=== PATIENT | male | born 1950 | race Caucasian/White ===

== ENCOUNTER 2023-10-05 07:17 | Inpatient (IN) ==
--- NOTE | 2023-09-15 08:17 | History & Physical Report ---
Date of Service September 15, 2023 date of surgery: 10/05/23 Procedure: Right Knee Poly Exchange Surgeon: Romie Yoder DO Assessment & Plan (1) Painful total knee replacement, right: Plan: Risk and benefits of procedure were discussed, with the proceed with surgical invention. Plan will be right knee polyethylene exchange, plan overnight stay at the hospital with discharge home with home health physical therapy. Will place on aspirin 81 mg twice a day for 1 month postop DVT prophylaxis. Follow- up in the office 2 weeks after surgery or sooner if he is having any issues. He otherwise has no other questions or concerns The risks and benefits have been discussed including, but not limited to, risk of infection, nerve injury, stiffness, loss of motion, failure to improve, etc. Reasonable outcomes and options of treatment were discussed. An explanation of appropriate alternatives to the procedure that may be advantageous were discussed and their risks and benefits, as well as the risks and benefits of not proceeding with treatment. I offered to answer any additional inquiries concerning the treatment involved. All the patient's questions were answered. The patient is agreeable, understanding of the treatment plan and alternatives, and wishes to proceed with the treatment plan. History of Present Illness Chief Complaint: Right knee pain Primary Care Provider: Romie Yoder DO Arturo is a 73-year-old male who presented for preop evaluation prior to upcoming right total knee polyethylene exchange. He has a history of right total knee [place] [address] Yoder and did reasonably well up until recently. He has had pain and instability, giving out of his right knee. He had x-rays taken by Dr. Yoder which did not show any acute findings, no signs of loosening. Did have some valgus varus laxity. At this point time would recommend polyethylene exchange. Allergies Allergy/AdvReac Type Severity Reaction Status Date / Time Penicillins Allergy Severe LIPS Verified 08/21/12 09:35 SWELLING bee venom protein (honey bee) Allergy Unknown UNKNOWN Verified 08/21/12 09:35 Home Medications Medication Instructions Recorded Confirmed Type ESOMEPRAZOLE MAGNESIUM (NEXIUM) 40 mg PO DAILY #0 caps 08/21/12 History TAMSULOSIN HCL (FLOMAX) 0.4 mg PO DAILY #0 caps 08/21/12 History LISINOPRIL (ZESTRIL) 20 mg PO DAILY #0 tabs 09/13/12 History OXYCODONE HCL (OXYCODONE HCL ER) 10 mg PO Q12 ##60 09/15/12 Rx OXYCODONE/ACETAMINOPHEN 5MG/325MG 1 - 2 tab PO Q4H PRN ##90 09/15/12 Rx (PERCOCET 5MG/325MG) Past Med/Surg History Medical History GERD (gastroesophageal reflux disease) High cholesterol Hypertension Surgical History History of total left knee replacement History of total right knee replacement Review of Systems Review of Systems: All systems reviewed & are unremarkable except as noted in HPI & below Constitutional: no fever, no chills and no sweats Respiratory: no cough and no dyspnea Cardiovascular: no chest pain, no dyspnea and no orthopnea Gastrointestinal: no abdominal pain, no nausea and no vomiting Musculoskeletal: as per Subjective / HPI Physical Exam Constitutional: WD/WN, vitals as above no acute distress Respiratory: normal respiratory effort, lungs clear to auscultation no respiratory distress, no labored breathing and does not use accessory muscles Cardiovascular: RRR, no murmur, no edema Gastrointestinal (Abdomen): normal bowel sounds, soft, nontender, no hepatosplenomegaly Musculoskeletal: Right Knee Exam overall neutral alignment, there is no atrophy warmth or ecchymosis noted, mild effusion, maximum tenderness medial joint. negative patellar apprehension , no crepitation with motion, valgus stress Negative, Varus stress Negative, no Extensor lag, Pain with Active range of motion, also passive painful ROM, Range of motion 0/3/110. No pain with active/passive ROM of ankle. Lower Extremity Strength normal. Lower Extremity Neuro-vascular is normal Results & Data Results & Data Diagnostic Findings 3 views right knee: the patient is status post a right total knee arthroplasty. The hardware is intact. No fracture or dislocation. IMPRESSION: Right total knee arthroplasty. No evidence for hardware complication.
--- NOTE | 2023-09-27 10:53 | Anesthesiology Consultation ---
Date of Service September 27, 2023 Assessment & Plan (1) Encounter for pre-operative examination: Chart Review Chart Review: Acceptable Risk for Surgery (pending ECHO, stress test and carotid reports ) and Patient NOT seen in Pre Admission Testing - Please obtain 02/2023 carotids, 2018 ECHO and 2017 stress test (noted in cardio note) -Infectious Disease screening: Per PAT nursing assessment on 09/23/23. No known infectious disease contacts in past 10 days or current infectious disease symptoms. No recent travel outside the country. Seen by cardio 03/15/23= PADcontinue aspirin and statin. Hypertensionacceptable today. Update echo with next office visit. Dyslipidemiacontinue statin. Carotid stenosis <50% bilateral ICAwe will obtain 2023. Mild TR. Aortic sclerosis noted on echo 4 years agowe will repeat echo. Follow-up in 1 year. History Surgery Operation Date: 10/05/23 10:00 Proposed Procedures p Right Knee Poly Exchange - Romie Yoder DO Height/Weight Height: 5 ft 10 in Weight: 92.533 kg Allergies Allergy/AdvReac Type Severity Reaction Status Date / Time Penicillins Allergy Severe LIPS Verified 09/23/23 13:03 SWELLING bee venom protein (honey bee) Allergy Unknown UNKNOWN Verified 09/23/23 13:03 Medications Home Medications Medication Instructions Recorded Confirmed Last Taken amlodipine 5 mg tablet 5 mg PO PM 09/23/23 09/23/23 Unknown aspirin 81 mg tablet,delayed 81 mg PO QAM 09/23/23 09/23/23 Unknown release atorvastatin 20 mg tablet 20 mg PO PM 09/23/23 09/23/23 Unknown bisoprolol fumarate 5 mg tablet 5 mg PO PM 09/23/23 09/23/23 Unknown lisinopril 20 mg tablet 20 mg PO QAM 09/23/23 09/23/23 Unknown magnesium 250 mg tablet 250 mg PO QAM 09/23/23 09/23/23 Unknown pantoprazole 40 mg tablet,delayed 40 mg PO PM 09/23/23 09/23/23 Unknown release Past Medical History Medical History (Updated 09/27/23 @ 11:01 by Leesa Valente PA-C) PAD (peripheral artery disease) mild to moderate right LE arterial disease, normal left LE arterial disease without claudication- on ASA and statin per cardio records Carotid stenosis <50% stenosis bilaterally per 02/2023 carotids per cardio records BPH (benign prostatic hyperplasia) Pulmonary embolism 40+ yrs ago, unknown cause History of COVID-2019 GERD (gastroesophageal reflux disease) High cholesterol Hypertension Past Surgical History Surgical History History of esophagogastroduodenoscopy (EGD) H/O decompression of ulnar nerve bilat History of arthroscopy right shoulder History of carpal tunnel release bilat S/P TURP History of colonoscopy History of appendectomy History of tooth extraction History of total left knee replacement History of total right knee replacement Social History Smoking Status: Former smoker Do You Dip or Chew Tobacco: No Smoking End Date: 1999 Hx Alcohol Use: No Hx Substance Use: No substance use type: does not use Testing Laboratory Results 09/12/23= WBC: 6.9 H/H: 14.6/42.9 PLATELETS: 263 SODIUM: 140 POTASSIUM: 4.0 CHLORIDE: 106 CO2: 27 BUN: 13 CREATININE: 0.83 GLUCOSE: 97
[~2023-10-05 07:17] MED LIST: ACETAMINOPHEN 500 MG TAB PO SCH; ALLERGY Noted to ORDERED Medication SCH; BUPIVACAINE 0.5 % 5 MG/1 ML PF 10ML VIAL ONE; CLINDAMYCIN/D5W 900 MG/50 ML BAG IV SCH; CeleBREX 200 MG CAP PO SCH; EPINEPHrine INJ 1 MG/ML AMP ONE; FAMOTIDINE 20 MG TAB PO SCH; GABAPENTIN 300 MG CAP PO SCH; LR 15ML/HR IV SCH; LR 60ML/HR IV SCH; METOCLOPRAMIDE HCL 10 MG TABLET PO SCH; ROPIVACAINE 0.5% 5 MG/ML 30 ML VIAL ONE; ROPIVACAINE 0.5% HCL/PF 150 MG, BUPIVACAINE 0.75% MPF 20 ML, EPINEPHrine 30MG/30ML (OR ... INSTIL SCH; TRANEXAMIC ACID 1,000 MG **IV Intra-op IV SCH; TRANEXAMIC ACID 1,000 MG **IV Pre-op IV SCH; dexAMETHasone 4 MG TAB PO SCH
--- NOTE | 2023-10-05 08:41 | History & Physical Bridge Note ---
Date of Service October 05, 2023 History & Physical Bridge Note I have examined the patient, reviewed the History & Physical and in the interval since the performance of the History & Physical I have noted the following changes of clinical significance: no changes noted
[2023-10-05] MEDS ORDERED: PROPOFOL IV EMULSION 10 MG/ML 20 ML VIAL IV ONE (09:15)
[2023-10-05] MEDS ORDERED: MIDAZOLAM HCL 1 MG/ML 2ML VIAL ONE ×2 (09:15→09:16)
[2023-10-05] MEDS ORDERED: ONDANSETRON INJ 2 MG/ML 2 ML VIAL ONE (09:15)
[2023-10-05] MEDS ORDERED: LIDOCAINE 2% 2 ML VIAL/AMP(20MG/ML) INFIL ONE (09:15)
[2023-10-05] MEDS ORDERED: ORTHO JOINT ANESTHETIC ONE (09:25)
[2023-10-05] MEDS ORDERED: FLUMAZENIL 0.1 MG/1 ML 10 ML VIAL IV PRN (10:55)
[2023-10-05] MEDS ORDERED: ONDANSETRON INJ 2 MG/ML 2 ML VIAL IV PRN ×2 (10:55→14:08)
[2023-10-05] MEDS ORDERED: PROMETHAZINE HCL 12.5 MG in SODIUM CHLORIDE 0.9% 50 ML IV PRN (10:55)
[2023-10-05] MEDS ORDERED: ATROPINE SULFATE 0.1 MG/ML 10ML SYR IV PRN (10:55)
[2023-10-05] MEDS ORDERED: ePHEDrine sulfate 50 MG/ML AMP IV PRN (10:55)
[2023-10-05] MEDS ORDERED: NALOXONE HCL 0.4 MG/1 ML VIAL/CARP IV PRN ×2 (10:55→14:08)
[2023-10-05] MEDS ORDERED: HYDROmorphone INJ 1 MG/ML SYRINGE IV PRN (10:55)
--- NOTE | 2023-10-05 11:08 | Operative Report ---
Post Operative Report Pre & Post Diagnosis Operation Date: 10/05/23 09:00 <No data on this case meets the specified criteria> I identified the patient and participated in the time-out.: Yes Procedure Patient presents with painful instability about the right knee after failure of the polyethylene post insert on a journey 1 total knee arthroplasty Operation Date: 10/05/23 09:00 <No data on this case meets the specified criteria> Surgeon Romie Yoder, Risk Control Representative Giovanny DOE Estimated Blood Loss 5 Findings Consistent with Post-Op Diagnosis Patient presents with pain instability after suffering a broken post of his poly implant of his right total knee arthroplasty Specimens Broken poly implant Drains Medium bore Hemovac Anesthesia Type MAC Spinal Regional Complications none Disposition Accompanied Patient To Recovery: No Disposition: Recovery Room Indications Patient presents after suffering sudden instability in after having a broken failed post of his polyethylene implant of his right total knee arthroplasty Description of Procedure After initiation of general esthesia right lower extremity subcu prepped draped usual fashion patient had an old medial parapatellar incision which was used to open the medial parapatellar incision to open the the knee joint the broken piece of purulence was immediately visualized was removed persistent partial synovectomy is hypertrophic scar was removed broken polyethylene bearing was removed wound was irrigated with copious muscle sterile saline solution the patient had meticulous hemostasis obtained and maintained at that time subsequently a polyethylene trial to size 13 gave excellent stability full extension excellent stability in flexion mid flexion and extension subsequently changed to size 10 to a size 13 the wound was irrigated once again the experience was also put into the knee the poly was subsequent change to a new poly medial parapatellar incision closed #1 Vicryl subcu was closed with 2-0 Vicryl skin was closed skin clips sterile compressive dressings placed patient was taken recovery room in stable condition please note Giovanny DOE was active just in case dissipated and exposure retraction placement of poly wound closure deep fascia. Skin was necessary for the case I attest to the content of the Intraoperative Record and any orders documented therein. Any exceptions are noted below.
[2023-10-05] MEDS: fentaNYL citrate PF 100 MCG/2 ML VIAL IV PRN ×4 (12:22→13:20)
--- NOTE | 2023-10-05 12:43 | Anesthesiology Progress Note ---
Date of Service October 05, 2023 Anesthesia Post Procedure Vital Signs Vital Signs: Temp Pulse Resp BP Pulse Ox O2 Del Method O2 Flow Rate 10/05/23 12:30 55 L 12 118/74 97 Nasal Cannula 2 10/05/23 12:20 59 L 16 103/67 97 Nasal Cannula 2 10/05/23 12:10 59 L 17 116/67 97 Nasal Cannula 2 10/05/23 12:00 61 14 114/62 90 Nasal Cannula 2 10/05/23 11:50 61 14 123/60 97 Oxymask 4 10/05/23 11:43 36.3 C L 61 16 114/57 L 97 Oxymask 6 10/05/23 08:10 36.5 C 61 14 167/65 H 97 Room Air Pain Intensity Right Knee: Pain Intensity: 5 Transfer of Care Handoff Completed per policy Notes Mental Status: alert / awake / arousable Patient Amnestic to Procedure: Yes Nausea / Vomiting: adequately controlled Pain: adequately controlled Airway Patency, RR, SpO2: stable & adequate BP & HR: stable & adequate Hydration State: stable & adequate Neuraxial Anesthesia: was administered and sensory block is resolving Anesthetic Complications: no major complications apparent
--- NOTE | 2023-10-05 13:17 | XRay Report ---
XR knee RT 1 or 2V routine HISTORY: 73 years-old Male Surgical Post Op right knee arthroplasty COMPARISON: None TECHNIQUE: 2 views of the right knee FINDINGS: Total joint arthroplasty with patellar resurfacing. Anterior midline skin adina with expected posto perative soft tissue swelling and deep tissue air. Surgical drainage catheter. Indeterminate 1.9 cm l inear metallic density structure superior to the patella. IMPRESSION: 1. Satisfactory alignment of the total joint arthroplasty. 2. Indeterminate 1.9 cm linear metallic density structure superior to the patella superficial and lat eral to the skin adina. Correlate clinically to exclude a foreign body. ACT 112: Negative or not required by law. The above report was generated using voice recognition software. It may contain grammatical, syntax o r spelling errors. Electronically signed by: Edis Arechiga M.D. 10/05/2023 1:16 PM
[2023-10-05] MEDS ORDERED: diphenhydrAMINE 50 MG/ML VIAL IV PRN (14:08)
[2023-10-05] MEDS ORDERED: SODIUM CHLORIDE 0.9% 1,000 ML IV SCH (14:08)
[2023-10-05] MEDS ORDERED: bisacodyL 10 MG SUPP PR PRN (14:08)
[2023-10-05] MEDS ORDERED: MAGNESIUM HYDROXIDE SUSP 30 ML UDC PO PRN (14:08)
[2023-10-05] MEDS: ACETAMINOPHEN 500 MG TAB PO SCH ×2 (14:48→21:19)
[2023-10-05] MEDS: oxyCODONE HCL IR 5 MG TAB (IMMEDIATE RELEASE) PO PRN ×2 (15:46→20:27)
[2023-10-05] MEDS: CLINDAMYCIN/D5W 600 MG/50 ML BAG IV SCH (17:22)
[2023-10-05] MEDS: HYDROmorphone INJ 0.5 MG/0.5 ML SYR IV PRN ×2 (17:27→23:29)
[2023-10-05] MEDS ORDERED: ATORVASTATIN 20 MG TAB PO SCH (21:00)
[2023-10-05] MEDS ORDERED: SENNA 8.6 MG TAB PO SCH (21:00)
[2023-10-05] MEDS ORDERED: BISOPROLOL FUMARATE 5 MG TAB PO SCH (21:00)
[2023-10-05] MEDS ORDERED: amLODIPine BESYLATE 5 MG TAB PO SCH (21:00)
[2023-10-05] MEDS ORDERED: PANTOprazole 40 MG TAB PO SCH (21:00)
[2023-10-05] MEDS: ASPIRIN 81 MG ECTAB PO SCH (21:18)
[2023-10-05] MEDS: DOCUSATE SODIUM 100 MG CAP PO SCH (21:19)
[2023-10-06] MEDS: CLINDAMYCIN/D5W 600 MG/50 ML BAG IV SCH (03:06)
[2023-10-06] MEDS: oxyCODONE HCL IR 5 MG TAB (IMMEDIATE RELEASE) PO PRN ×2 (03:08→08:06)
[2023-10-06] MEDS: ACETAMINOPHEN 500 MG TAB PO SCH (05:24)
[2023-10-06 06:20] LABS: Hemoglobin 13.7 g/dl (14.0-18.0); Mean Corpuscular Hemoglobin 29.1 pg (25.0-34.0); Mean Corpuscular Hgb Conc 34.3 g/dL (32.0-36.0); Mean Corpuscular Volume 84.9 fL (80.0-100.0); Mean Platelet Volume 10.3 fL (9.4-12.4); Platelet Count 231 K/uL (130-400); RDW Coefficient of Variation 12.5 % (11.5-14.5); RDW Standard Deviation 38.6 fL (36.4-46.3); Red Blood Count 4.71 M/uL (4.70-6.10); White Blood Count 14.38 K/ul (4.8-10.8)
[2023-10-06 06:42] LABS: BUN Creatinine Ratio 23.1 (10-20); Calcium 8.6 mg/dl (8.6-10.3); Creatinine Clr Calc Pharmacy 96.2 ml/min; Est GFR (African American) 103.1 ml/min; Est GFR (Non-African American) 88.9 ml/min; Potassium 4.4 mmol/L (3.5-5.1)
--- NOTE | 2023-10-06 07:24 | Orthopedic Progress Note ---
Date of Service October 06, 2023 POD #1 s/p Right Knee Poly Exchange Assessment & Plan (1) Painful total knee replacement, right: Plan: POD #1 s/p Right Knee Poly Exchange pt/ot dvt proph with ALISTAIR/SCD/ASA plan for d/c home with HHPT later today Admission and Anticipated Discharge Date Admission Date: October 05, 2023 Subjective POD #1 s/p poly exchange right knee Review of Systems Constitutional: no fever, no chills and no sweats Respiratory: no cough and no dyspnea Cardiovascular: no chest pain and no dyspnea Gastrointestinal: no abdominal pain, no nausea and no vomiting Physical Exam Physical Exam: Vital Signs Temp 36.5 C 10/06/23 03:00 Pulse 72 10/06/23 03:00 Resp 20 10/06/23 03:00 BP 144/64 H 10/06/23 03:00 Pulse Ox 95 10/06/23 03:00 O2 Del Method Room Air 10/06/23 03:00 O2 Flow Rate 2 10/05/23 17:00 Intake & Output 10/05/23 10/06/23 10/06/23 18:59 06:59 18:59 Intake Total 2210 / 2260 50 / 2260 Output Total 80 / 655 575 / 655 Balance 2130 / 1605 -525 / 1605 Weight 95.2 kg Intake: IV 760 / 810 50 / 810 Clindamycin/D5 w 600 mg In 50 ml 50 / 100 50 / 100 @ 100 mls/hr I V Q8H [facility] Rx#: [id number] Clindamycin/D5 w 900 mg In 50 ml 50 / 50 @ 100 mls/hr I V PREOP ROMELIA Rx#: [id number] Lactated Ringe r's 1,000 ml @ 15 0 / 0 mls/hr IV .Q24 H [facility]ELIA Rx#: [id number] Sodium Chlorid e 0.9% 1,000 ml @ 460 / 460 100 mls/hr IV .Q10H [facility] Rx#: [id number] Tranexamic Aci d / 0.7% NaCl 1, 200 / 200 000 mg In 100 ml @ 600 mls/hr IV TODAY@0600 ROMEL[facility] Rx#:[id number] IV Perioperative 900 / 900 Oral 550 / 550 Output: Urine 525 / 525 Estimated Blood Loss 5 / 5 Drain Output 75 / 125 50 / 125 Hemovac 75 / 125 50 / 125 Right Knee MAYRA 0 / 0 Other: Weight Measureme nt Method Standing Scale Musculoskeletal: Right Leg: NVDI, calf SNT, negative anibal sign. DP palpable, able to wiggle toes/ankle movement without difficulty. dressing clean dry and intact. Results & Data Vital Signs (Past 12 Hours) Vital Signs Temp Pulse Resp BP Pulse Ox O2 Del Method 10/06/23 03:00 36.5 C 72 20 144/64 H 95 Room Air 10/05/23 23:00 36.4 C L 59 L 16 130/66 94 Room Air 10/05/23 21:25 Room Air 10/05/23 19:36 36.3 C L 72 16 148/65 H 95 Room Air Laboratory Results Laboratory Results WBC 14.38 K/ul (4.8-10.8) H 10/06/23 05:47 RBC 4.71 M/uL (4.70-6.10) 10/06/23 05:47 Hgb 13.7 g/dl (14.0-18.0) L 10/06/23 05:47 Hct 40.0 % (42.0-52.0) L 10/06/23 05:47 MCV 84.9 fL (80.0-100.0) 10/06/23 05:47 MCH 29.1 pg (25.0-34.0) 10/06/23 05:47 MCHC 34.3 g/dL (32.0-36.0) 10/06/23 05:47 RDW Std Deviation 38.6 fL (36.4-46.3) 10/06/23 05:47 RDW Coeff of Jana 12.5 % (11.5-14.5) 10/06/23 05:47 Plt Count 231 K/uL (130-400) 10/06/23 05:47 MPV 10.3 fL (9.4-12.4) 10/06/23 05:47 Sodium 135 mmol/L (136-145) L 10/06/23 05:47 Potassium 4.4 mmol/L (3.5-5.1) 10/06/23 05:47 Chloride 104 mmol/L (98-107) 10/06/23 05:47 Carbon Dioxide 27 mmol/L (21-32) 10/06/23 05:47 Anion Gap 4 (3-11) 10/06/23 05:47 BUN 18 mg/dl (6-23) 10/06/23 05:47 Creatinine 0.78 mg/dl (0.6-1.4) 10/06/23 05:47 Est Cr Clr Drug Dosing 96.2 ml/min 10/06/23 05:47 Est GFR ( Amer) 103.1 ml/min 10/06/23 05:47 Est GFR (Non-Af Amer) 88.9 ml/min 10/06/23 05:47 BUN/Creatinine Ratio 23.1 (10-20) H 10/06/23 05:47 Glucose 132 mg/dl (70-99(Fasting)) H 10/06/23 05:47 Calcium 8.6 mg/dl (8.6-10.3) 10/06/23 05:47 Blood Type O Positive 10/05/23 08:19 Antibody Screen NEGATIVE 10/05/23 08:19 Impressions Knee X-Ray 10/05/23 11:49 XR knee RT 1 or 2V routine HISTORY: 73 years-old Male Surgical Post Op right knee arthroplasty COMPARISON: None TECHNIQUE: 2 views of the right knee FINDINGS: Total joint arthroplasty with patellar resurfacing. Anterior midline skin adina with expected postoperative soft tissue swelling and deep tissue air. Surgical drainage catheter. Indeterminate 1.9 cm linear metallic density structure superior to the patella. IMPRESSION: 1. Satisfactory alignment of the total joint arthroplasty. 2. Indeterminate 1.9 cm linear metallic density structure superior to the patella superficial and lateral to the skin adina. Correlate clinically to exclude a foreign body. ACT 112: Negative or not required by law. The above report was generated using voice recognition software. It may contain grammatical, syntax or spelling errors. Electronically signed by: Edis Arechiga M.D. 10/05/2023 1:16 PM
[2023-10-06] MEDS: DOCUSATE SODIUM 100 MG CAP PO SCH (08:07)
[2023-10-06] MEDS: ASPIRIN 81 MG ECTAB PO SCH (08:07)
[2023-10-06] MEDS ORDERED: MAGNESIUM OXIDE 400 MG TAB PO SCH (09:00)
[2023-10-06] MEDS ORDERED: MULTIVITAMIN TAB PO SCH (09:00)
[2023-10-06] MEDS ORDERED: lisinopril 20 MG TAB PO SCH (09:00)
--- NOTE | 2023-10-12 15:03 | Discharge Summary ---
Date of Service October 12, 2023 Admission HPI Per Admitting Provider Maria Guadalupe is a 73-year-old male who presented for preop evaluation prior to upcoming right total knee polyethylene exchange. He has a history of right total knee arthroplasty [place] [address] Hamilton and did reasonably well up until recently. He has had pain and instability, giving out of his right knee. He had x-rays taken by Dr. Hamilton which did not show any acute findings, no signs of loosening. Did have some valgus varus laxity. At this point time would recommend polyethylene exchange. Admission Exam Per Admitting Provider Physical Exam Constitutional: WD/WN, vitals as above no acute distress Respiratory: normal respiratory effort, lungs clear to auscultation no respiratory distress, no labored breathing and does not use accessory muscles Cardiovascular: RRR, no murmur, no edema Gastrointestinal (Abdomen): normal bowel sounds, soft, nontender, no hepatosplenomegaly Musculoskeletal: Right Knee Exam overall neutral alignment, there is no atrophy warmth or ecchymosis noted, mild effusion, maximum tenderness medial joint. negative patellar apprehension , no crepitation with motion, valgus stress Negative, Varus stress Negative, no Extensor lag, Pain with Active range of motion, also passive painful ROM, Range of motion 0/3/110. No pain with active/passive ROM of ankle. Lower Extremity Strength normal. Lower Extremity Neuro-vascular is normal Principal Diagnosis Painful R TKA/instability Discharge Data Allergies Allergy/AdvReac Type Severity Reaction Status Date / Time Penicillins Allergy Severe LIPS Verified 09/23/23 13:03 SWELLING bee venom protein (honey bee) Allergy Unknown UNKNOWN Verified 09/23/23 13:03 Procedures Performed Operation Date: 10/05/23 09:00 Actual Procedures p Right Knee Polyethylene Exchange(Right) - Romie Hamilton DO Ordered Studies 10/05/23 09:25 US - OR guided needle placemen Stat Hospital Course (1) Painful total knee replacement, right: Patient: MARIA GUADALUPE MAXWELL I Admit Date: 10/05/23 MR#: [id number] Att Phy: Romie Hamilton,ShashaOThuy Acct ID: [id number] Ketty Phy: Sarah. Vigil DO Date: 1950 Fam Phy: Age: 73 Location: 3E Sex: M Room/Bed: E3- cc: ~ *NOTICE TO RECEIVING GREEN PARTY/AGENCY This information is strictly Confidential and protected under [place] law. [place] law prohibits you from making any further disclosure of this information unless further disclosure is expressly permitted by the written consent of the person to whom it pertains or is authorized by law. A general authorization for the release of medical or other information is not sufficient for this purpose. Hospital accepts no responsibility if the information is made available to any other person, INCLUDING THE PATIENT. Date of Service October 06, 2023 POD #1 s/p Right Knee Poly Exchange Assessment & Plan (1) Painful total knee replacement, right: Plan: POD #1 s/p Right Knee Poly Exchange pt/ot dvt proph with ALISTAIR/SCD/ASA plan for d/c home with HHPT later today Admission and Anticipated Discharge Date Admission Date: October 05, 2023 Subjective POD #1 s/p poly exchange right knee Review of Systems Constitutional: no fever, no chills and no sweats Respiratory: no cough and no dyspnea Cardiovascular: no chest pain and no dyspnea Gastrointestinal: no abdominal pain, no nausea and no vomiting Physical Exam Physical Exam: Vital Signs Temp 36.5 C 10/06/23 03:00 Pulse 72 10/06/23 03:00 Resp 20 10/06/23 03:00 BP 144/64 H 10/06/23 03:00 Pulse Ox 95 10/06/23 03:00 O2 Del Method Room Air 10/06/23 03:00 O2 Flow Rate 2 10/05/23 17:00 Intake & Output 10/05/23 10/06/23 10/06/23 18:59 06:59 18:59 Intake Total 2210 / 2260 50 / 2260 Output Total 80 / 655 575 / 655 Balance 2130 / 1605 -525 / 1605 Weight 95.2 kg Intake: IV 760 / 810 50 / 810 Clindamycin/D5 w 600 mg In 50 ml 50 / 100 50 / 100 @ 100 mls/hr I V Q8H ROMELIA Rx#: [id number] Clindamycin/D5 w 900 mg In 50 ml 50 / 50 @ 100 mls/hr I V PREOP ROMELIA Rx#: [id number] Lactated Ringe r's 1,000 ml @ 15 0 / 0 mls/hr IV .Q24 H ROMELIA Rx#: [id number] Sodium Chlorid e 0.9% 1,000 ml @ 460 / 460 100 mls/hr IV .Q10H ROMELIA Rx#: [id number] Tranexamic Aci d / 0.7% NaCl 1, 200 / 200 000 mg In 100 ml @ 600 mls/hr IV TODAY@0600 ROMELIA Rx#:[id number] IV Perioperative 900 / 900 Oral 550 / 550 Output: Urine 525 / 525 Estimated Blood Loss 5 / 5 Drain Output 75 / 125 50 / 125 Hemovac 75 / 125 50 / 125 Right Knee MAYRA 0 / 0 Other: Weight Measureme nt Method Standing Scale Musculoskeletal: Right Leg: NVDI, calf SNT, negative anibal sign. DP palpable, able to wiggle toes/ankle movement without difficulty. dressing clean dry and intact. Results & Data Vital Signs (Past 12 Hours) Vital Signs Temp Pulse Resp BP Pulse Ox O2 Del Method 10/06/23 03:00 36.5 C 72 20 144/64 H 95 Room Air 10/05/23 23:00 36.4 C L 59 L 16 130/66 94 Room Air 10/05/23 21:25 Room Air 10/05/23 19:36 36.3 C L 72 16 148/65 H 95 Room Air Laboratory Results Laboratory Results WBC 14.38 K/ul (4.8-10.8) H 10/06/23 05:47 RBC 4.71 M/uL (4.70-6.10) 10/06/23 05:47 Hgb 13.7 g/dl (14.0-18.0) L 10/06/23 05:47 Hct 40.0 % (42.0-52.0) L 10/06/23 05:47 MCV 84.9 fL (80.0-100.0) 10/06/23 05:47 MCH 29.1 pg (25.0-34.0) 10/06/23 05:47 MCHC 34.3 g/dL (32.0-36.0) 10/06/23 05:47 RDW Std Deviation 38.6 fL (36.4-46.3) 10/06/23 05:47 RDW Coeff of Jana 12.5 % (11.5-14.5) 10/06/23 05:47 Plt Count 231 K/uL (130-400) 10/06/23 05:47 MPV 10.3 fL (9.4-12.4) 10/06/23 05:47 Sodium 135 mmol/L (136-145) L 10/06/23 05:47 Potassium 4.4 mmol/L (3.5-5.1) 10/06/23 05:47 Chloride 104 mmol/L (98-107) 10/06/23 05:47 Carbon Dioxide 27 mmol/L (21-32) 10/06/23 05:47 Anion Gap 4 (3-11) 10/06/23 05:47 BUN 18 mg/dl (6-23) 10/06/23 05:47 Creatinine 0.78 mg/dl (0.6-1.4) 10/06/23 05:47 Est Cr Clr Drug Dosing 96.2 ml/min 10/06/23 05:47 Est GFR ( Amer) 103.1 ml/min 10/06/23 05:47 Est GFR (Non-Af Amer) 88.9 ml/min 10/06/23 05:47 BUN/Creatinine Ratio 23.1 (10-20) H 10/06/23 05:47 Glucose 132 mg/dl (70-99(Fasting)) H 10/06/23 05:47 Calcium 8.6 mg/dl (8.6-10.3) 10/06/23 05:47 Blood Type O Positive 10/05/23 08:19 Antibody Screen NEGATIVE 10/05/23 08:19 Impressions Knee X-Ray 10/05/23 11:49 XR knee RT 1 or 2V routine HISTORY: 73 years-old Male Surgical Post Op right knee arthroplasty COMPARISON: None TECHNIQUE: 2 views of the right knee FINDINGS: Total joint arthroplasty with patellar resurfacing. Anterior midline skin adina with expected postoperative soft tissue swelling and deep tissue air. Surgical drainage catheter. Indeterminate 1.9 cm linear metallic density structure superior to the patella. IMPRESSION: 1. Satisfactory alignment of the total joint arthroplasty. 2. Indeterminate 1.9 cm linear metallic density structure superior to the patella superficial and lateral to the skin adina. Correlate clinically to exclude a foreign body. ACT 112: Negative or not required by law. The above report was generated using voice recognition software. It may contain grammatical, syntax or spelling errors. Electronically signed by: Edis Arechiga M.D. 10/05/2023 1:16 PM Total Time Total Time Spent Total Time Spent (In Minutes): 5 Discharge Plan Discharge Items Patient Disposition: Home - Home Health Services Reason For Visit: polyethylene bearing failure right tka Discharge Diagnosis: Osteoarthritis right knee Activity: Per Instructions section Non-emergency contact: Surgeon Call non-emergency contact if: you have any medication questions, your pain is not controlled, your temperature is above 101.5, your wound has increased redness and your wound has increased drainage Follow-up/Referrals: Romie Hamilton DO [Surgeon] - (Follow-up with Dr. Hamilton or his PA in 14 days from the day of your surgery for your first postoperative visit.) Edna Vigil D.O. [Primary Care Provider] - Diet: Regular Addtl Attending Provider Instructions: ACTIVITY RECOMMENDATIONS: SELF CARE INSTRUCTIONS AFTER TOTAL KNEE REPLACEMENT A. You may need to continue a physical therapy program after discharge from the hospital. There are several options available to you. Your doctor will assist you in selecting the best one for you. 1. An out-patient facility 2 to 3 times a week for therapy or home therapy. 2. Continue working on all exercises taught to you in the hospital. Your goals should be to increase bending of your knee to 90 degrees and beyond and to fully straighten your knee. B. You may progress at your own pace from walking with a walker or crutches to a cane; then to no assistive devices. C. Make walking a part of your daily routine. Be up as much as comfortable with rest periods throughout the day. Rest with leg elevation is very important. Use the ice wrap frequently for the first 3-4 weeks. D. There are no restrictions on activities. You may ride in a car, shop, participate in respite coordinator and all social activities. E. Wear the long elastic stockings (ALISTAIR hose) 20 hours a day for 2 weeks after surgery. They can be removed several times a day for laundering and for a bath. F. You may shower, no tub baths until cleared by your doctor. SPECIAL CARE INSTRUCTIONS: VERY IMPORTANT TO READ AND REVIEW A. There are a few signs you need to watch for after you are home. Call [facility] if you notice any of the followin. Increased severe knee pain. Some pain is expected especially when you exercise. 2. Increased swelling in your leg or knee; pain or swelling of the calf muscle in either lower leg. 3. Any fluid drainage from the incision. 4. Shortness of breath or chest pain. B. Please call [facility] at if you have any concerns or questions about your operation or recovery. The doctor or his nurse will return your call promptly. C. You must take antibiotics before dental work, bladder, bowel or other surgery. Your doctor will provide you with a permanent care to carry describing this precaution. IMPORTANT: * REMEMBER TO TAKE ASPIRIN, 81 MG, TWICE DAILY FOR 4 WEEKS UNLESS OTHERWISE DIRECTED. THIS IS YOUR BLOOD THINNER. * CALL IF INCREASED PAIN, REDNESS, DRAINAGE OR FEVER GREATER THAT 101. * WEAR ALISTAIR HOSE 20 HOURS PER DAY FOR 2 WEEKS. * EMMA Dressing - This is a large suction dressing covering your incision. This will help pull any excess drainage from the wound and allow your incision to heal properly. You may shower with this if you can keep the unit outside of the shower. If any bleeding or leakage is noted please call your doctor's office. This will remain on your incision for 7 days and then should be removed. This can be done yourself or by the home nursing staff if applicable. The entire unit is disposable once removed. Once removed, keep incision clean and dry. If redness or drainage is noted, please call your surgeon. . FOLLOW UP VISIT: If appointment is not already scheduled: Please call [facility] to make a follow-up appointment for 2 weeks after your surgery at . Pending Studies at Discharge: No Stand-Alone Forms: My [facility], Pain - Opioid Pain Management, Smoking Cessation Medications and DC Order Prescriptions: New acetaminophen 500 mg tablet 1,000 mg PO Q8 21 Days Qty: 126 0RF aspirin 81 mg tablet,delayed release (DR/EC) 81 mg PO BID 30 Days Qty: 60 0RF celecoxib [Celebrex] 200 mg capsule 200 mg PO BID 30 Days Qty: 60 0RF clindamycin HCl 300 mg capsule 300 mg PO TID 7 Days Qty: 21 0RF docusate sodium 100 mg Capsule 100 mg PO BID Qty: 20 0RF oxycodone 5 mg tablet 5 - 10 mg PO Q6H PRN (Reason: pain) Qty: 30 0RF Rx Instructions: ongoing therapy, supervising dr kelsi hamilton. max 6 tabs in 24 hours Continued atorvastatin 20 mg Tablet 20 mg PO PM lisinopril 20 mg Tablet 20 mg PO QAM amlodipine 5 mg Tablet 5 mg PO PM bisoprolol fumarate 5 mg Tablet 5 mg PO PM pantoprazole 40 mg Tablet,Delayed Release (Dr/Ec) 40 mg PO PM magnesium 250 mg Tablet 250 mg PO QAM Discontinued aspirin [Aspir-81] 81 mg Tablet,Delayed Release (Dr/Ec) 81 mg PO QAM Discharge Orders: Discharge Order (Routine); Ordered 10/06/23 Ordered By: Kofi Aranda/Other Patient Handouts: Knee Replace Control Swelling Admission Data Admit Date/Time: 10/05/23 12:01 Attending Provider: Romie Hamilton Admit Provider: Romie Hamilton Primary Care Provider: Edna Vigil Other Providers: [facility],Home Healthcare Other Interventions: Discharge Summary Assessment (RN) Last Done: 10/06/23 08:12
== END 2023-10-06 11:55 | disposition home health service (06) | DRG 468 ==
LOC: ASU 07:17 → 3E 12:01